=== PATIENT | female | born 1955 | race Caucasian/White ===

== ENCOUNTER → 2021-01-26 | Outpatient (CLI) | payer MEDICARE ==
[~2021-01-26] MED LIST: MULT-658 PO
== END | disposition home or self-care (01) ==
LOC: CVU 09:20
PROVIDERS: ATTEND Pathology Hematology
DX: Z51.11 Encounter for antineoplastic chemotherapy (principal); C50.412 Malignant neoplasm of upper-outer quadrant of left female breast; C77.9 Secondary and unspecified malignant neoplasm of lymph node, unspecified; G62.0 Drug-induced polyneuropathy; I08.3 Combined rheumatic disorders of mitral, aortic and tricuspid valves; J90 Pleural effusion, not elsewhere classified; M79.89 Other specified soft tissue disorders
CPT/HCPCS: 93306

== ENCOUNTER 2021-02-08 13:15 | Emergency (ER) | payer MEDICARE, BC ==
[~2021-02-08] VITALS: Ht 152.4 cm; Wt 39.0 kg
--- NOTE | 2021-02-08 13:59 | NUR ---
THIS IS A 65 YO F W/ C/O SOB, OCCASIONAL COUGH X1 WEEK. PT DENIES PAIN. PTS FAMILY REPORTS PT HAD RECENT THORACENTESIS AND SYMPTOMS FEEL THE SAME. PT HAS STAGE 4 BREAST CANCER, CURRENTLY NOT RECEIVING TREATMENT. PT RESTING ON GURNEY W/ CALL LIGHT IN REACH AND SIDE RAILS UPX2. TACHYCARDIC AND TACHYPNEIC, OTHER VS WDL. PT WEARS 2L O2 NC AT BASELINE. AT BEDSIDE FOR ED EVAL.
--- NOTE | 2021-02-08 14:36 | NUR ---
PT RESTING ON [employer] W/ CALL LIGHT IN REACH AND SIDE RAILS UPX2. RESP EVEN AND UNLABORED, NADN. PROVIDED W/ ICE CHIPS PER PT REQUEST, OK PER . AWAITING RECHECK.
[2021-02-08] MEDS ORDERED: LIDOCAINE 1%, 10ML ONE (14:52)
--- NOTE | 2021-02-08 15:06 | NUR ---
PT TO IR.
--- NOTE | 2021-02-08 15:39 | NUR ---
PT RETURNED FROM IR. RESP EVEN AND UNLABORED, NADN. PER IR TECH 975ML REMOVED FROM RT SIDE AND 900ML REMOVED FROM LT.
--- NOTE | 2021-02-08 16:49 | NUR ---
pt resting quietly in bed with at bedside, states "shes tired, shes sleeping". no signs or symptoms of acute distress noted respirations even and unlabored, pt on lip and gate builder with call light within reach and bed rails up bilaterally. denies need or question at this time
[2021-02-08 18:00] VITALS: BP 117/72
== END 2021-02-08 18:26 | disposition home or self-care (01) ==
LOC: ED 14:01
DX: J90 Pleural effusion, not elsewhere classified (principal); R07.89 Other chest pain; R00.0 Tachycardia, unspecified; I25.2 Old myocardial infarction; Z85.3 Personal history of malignant neoplasm of breast
CPT/HCPCS: 32555; 71046; 93005; 99285; J3490

== ENCOUNTER 2021-02-13 07:45 | Inpatient (IN) | payer MEDICARE, BC ==
[~2021-02-13] VITALS: Ht 147.3 cm; Wt 45.5 kg
--- NOTE | 2021-02-13 07:48 | NUR ---
TRIAGE DONE BY THIS RN
--- NOTE | 2021-02-13 08:10 | NUR ---
THIS IS A 65F THAT COMES IN WITH SPOUSE. PT HAS BEGUN FEELING SOB AGAIN FOR TWO DAYS WORSENING TODAY. PT HAS HX OF STAGE 4 BREAST CA, AND HAS RECENTLY HAD 900ML DRAINED OFF OF HER HEART AND LUNGS LAST WEEK PER . PT CONNECTED TO MONITORING VSS ON BASELINE O2
[2021-02-13] MEDS ORDERED: SODIUM CHLORIDE FLUSH 10ML SYR IVF ONE (08:30)
--- NOTE | 2021-02-13 08:43 | NUR ---
LAB AT BEDSIDE FOR DRAW AT THIS TIME
[2021-02-13 08:56] LABS: BASOPHILS % (AUTO) 0 % (0-1); EOSINOPHILS % (AUTO) 0 % (1-7); LYMPHOCYTES % (AUTO) 4 % (22-44); MEAN CORPUSCULAR HEMOGLOBIN 32.8 pg (27.0-34.8); MEAN CORPUSCULAR HGB CONC 32.8 g/dL (32.4-35.8); MEAN PLATELET VOLUME 7.6 fL (7.4-10.4); MONOCYTES % (AUTO) 3 % (2-9); NEUTROPHILS % (AUTO) 92 % (42-75); PLATELET COUNT 179 x10^3/uL (130-400); RED BLOOD COUNT 4.06 x10^6/uL (3.82-5.3); RED CELL DISTRIBUTION WIDTH 15.5 % (9.6-15.2)
--- NOTE | 2021-02-13 08:57 | NUR ---
REPORT TAKEN FROM EMMA KASPER. ASSUMED CARE
[2021-02-13 09:04] LABS: ANION GAP 12 mmol/L (5-15); CALCIUM 8.5 mg/dL (8.5-10.1); CHLORIDE 106 mmol/L (98-107)
[2021-02-13 09:08] LABS: ALKALINE PHOSPHATASE 64 U/L (45-117); BILIRUBIN,TOTAL 0.4 mg/dL (0.2-1.0); TOTAL PROTEIN 6.4 g/dL (6.4-8.2); TROPONIN I 0.239 ng/mL (0.000-0.045)
[2021-02-13 09:18] LABS: ALANINE AMINOTRANSFERASE < 6 U/L (12-78)
[2021-02-13 09:19] LABS: CREATININE 1.61 mg/dL (0.55-1.02)
[2021-02-13 09:26] LABS: MD SCAN
[2021-02-13] MEDS ORDERED: HYDROmorphone 1 MG/ML, 1ML INJ ONE ×2 (10:16→10:43)
[2021-02-13] MEDS ORDERED: SODIUM CHLORIDE 0.9% 1,000ML IVBOLUS ONE (10:30)
[2021-02-13] MEDS ORDERED: LIDOCAINE 1%, 10ML ONE (10:37)
[2021-02-13] MEDS: HYDROmorphone 1 MG/ML, 1ML INJ IV ONE ×2 (10:46→10:49)
--- NOTE | 2021-02-13 10:49 | NUR ---
PAIN MEDS ADMIN PER JAN. PT REQUESTED 0.5MG DILAUDID. PT GOING TO IR.
--- NOTE | 2021-02-13 11:30 | NUR ---
PT BACK FROM IR. PT RESTING ON [facility]. HOSPITALIST AT BEDSIDE.
[2021-02-13] MEDS ORDERED: ONDANSETRON ODT 4 MG PO PRN (12:00)
[2021-02-13] MEDS ORDERED: LORazepam 2 MG/ML, 1ML IVPush PRN (12:00)
[2021-02-13] MEDS ORDERED: ONDANSETRON 2MG/ML, 2ML IVPush PRN (12:00)
[2021-02-13] MEDS ORDERED: ACETAMINOPHEN 325 MG TABLET PO PRN (12:00)
[2021-02-13] MEDS ORDERED: ENALAPRILAT 1.25 MG/ML, 2ML IVPush PRN (12:00)
[2021-02-13 12:10] LABS: TROPONIN I 0.235 ng/mL (0.000-0.045)
[2021-02-13 13:44] VITALS: BP 95/66
[2021-02-13 14:51] VITALS: BP 95/66
[2021-02-13 17:24] LABS: TROPONIN I 0.259 ng/mL (0.000-0.045)
[2021-02-13 18:35] VITALS: BP 90/63
[2021-02-13 19:55] VITALS: BP 103/74
[2021-02-13 20:23] VITALS: BP 90/62
[2021-02-13 21:10] VITALS: BP 105/77
[2021-02-13] MEDS ORDERED: OXYC1TAB14 PO (22:17)
[2021-02-13] MEDS ORDERED: FURO20TA3 PO (22:17)
[2021-02-14 00:39] VITALS: BP 96/65
[2021-02-14 07:33] VITALS: BP 89/66
[2021-02-14] MEDS: morphine SULFATE 10 MG/ML, 1ML IVPush PRN ×2 (12:41→21:04)
[2021-02-14 12:55] VITALS: BP 89/62
[2021-02-14 19:42] VITALS: BP 104/75
[2021-02-15] MEDS: morphine SULFATE 10 MG/ML, 1ML IVPush PRN ×2 (00:04→09:11)
[2021-02-15 00:25] VITALS: BP 88/61
[2021-02-15 00:38] VITALS: BP 92/64
[2021-02-15 06:48] VITALS: BP 93/68
== END 2021-02-15 11:24 | disposition hospice, home (50) | DRG 597 ==
LOC: ED 09:33 → SUATTDRO 11:18 → EDIP 11:36 → OBSVTOIN 11:57 → 3N 13:17
PROVIDERS: ADMIT Hospitalist; ATTEND Internal Medicine
PROC: 0W9B3ZZ Drainage of Left Pleural Cavity, Percutaneous Approach (ICD-10-PCS; principal; 2021-02-13)
DX: C50.919 Malignant neoplasm of unspecified site of unspecified female breast (principal); E43 Unspecified severe protein-calorie malnutrition; I21.A1 Myocardial infarction type 2; J91.0 Malignant pleural effusion; J96.11 Chronic respiratory failure with hypoxia; N17.9 Acute kidney failure, unspecified; Z66 Do not resuscitate; Z51.5 Encounter for palliative care; Z68.21 Body mass index [BMI] 21.0-21.9, adult; N18.9 Chronic kidney disease, unspecified; Z82.5 Family history of asthma and other chronic lower respiratory diseases
CPT/HCPCS: 32555; 36415; 71045; 80053; 83605; 84484; 85025; 93005; 96361; 96374; G0378; J1170; J2270; J7030